=== PATIENT | female | born 1955 | race Caucasian/White ===

== ENCOUNTER 2017-11-13 16:41 | Inpatient (IN) | payer OTHER ==
[~2017-11-13] VITALS: Ht 160 cm; Wt 108.9 kg
[~2017-11-13 16:41] MED LIST: GLIP10TA10; HYDR25TA; INSASP; LOSA25TA12; METF25CR; METO25TA3
[2017-11-13] MEDS ORDERED: ACETAMINOPHEN 325MG TABLET PO STA (18:15)
[2017-11-13] MEDS ORDERED: ASPIRIN 81MG TABLET PO ONE (18:15)
[2017-11-13] MEDS ORDERED: LEVOFLOXACIN 750MG PREMIX 150 ML IV ONE (19:00)
[2017-11-13] MEDS ORDERED: GUAIFENESIN 200MG/10ML SUGAR FREE UDC PO ONE (19:00)
[2017-11-13 19:08] LABS: HEMOGLOBIN. 10.5 g/dL (12.0-16.0); MEAN CORPUSCULAR HEMOGLOBIN 26.8 pg (28.0-32.0); MEAN CORPUSCULAR VOLUME 79.4 fL (81.0-99.0); MEAN PLATELET VOLUME 7.7 fl (7.4-10.4); PLATELET 191 x1000/uL (130-400); RED CELL DISTRIBUTION WIDTH 14.8 % (11.6-14.6)
[2017-11-13 19:14] LABS: INR 1.1; PROTHROMBIN TIME 11.2 sec (9.4-11.6)
[2017-11-13 19:15] LABS: CHLORIDE 96 mEq/L (98-107)
[2017-11-13 19:19] LABS: CARBON DIOXIDE 31 mEq/L (21-32); ETHANOL BLOOD < 10 mg/dL
[2017-11-13 19:28] LABS: TROPONIN I < 0.02 ng/mL (0.00-0.04)
[2017-11-13 20:06] LABS: *AMPHETAMINES SCREEN URINE NEGATIVE (NEGATIVE); *BARBITURATES SCREEN URINE NEGATIVE (NEGATIVE); *BENZODIAZEPINES SCREEN URINE NEGATIVE (NEGATIVE); *COCAINE SCREEN URINE NEGATIVE (NEGATIVE); CANNABINOID URINE SCREEN NEGATIVE (NEGATIVE); METHADONE URINE SCREEN NEGATIVE (NEGATIVE); OPIATES URINE SCREEN PRESUMTIVE POSITIVE (NEGATIVE); PHENCYCLIDINE URINE SCREEN NEGATIVE (NEGATIVE)
[2017-11-13] MEDS ORDERED: ONDANSETRON HCL 4MG/2ML VIAL IV PRN (20:30)
[2017-11-13] MEDS ORDERED: ACETAMINOPHEN 650MG SUPP PR PRN (20:30)
[2017-11-13] MEDS ORDERED: MORPHINE SULFATE 2 MG/ML CPJ (NOT FOR IM USE) IV PRN (20:30)
[2017-11-13] MEDS ORDERED: CLONIDINE 0.1MG TABLET PO PRN (20:30)
[2017-11-13] MEDS ORDERED: ACETAMINOPHEN 650MG/20.3ML UDC GT PRN (20:30)
[2017-11-13] MEDS ORDERED: NA PHOS,M-B/NA PHOS,DI-BA ENEMA 118ML PR PRN (20:30)
[2017-11-13] MEDS ORDERED: MAGNESIUM/ALUMINUM HYDROXIDE/SIMETHICONE 30ML UDC PO PRN (20:30)
[2017-11-13] MEDS ORDERED: DOCUSATE SODIUM 100MG CAPSULE PO PRN (20:30)
[2017-11-13] MEDS ORDERED: DIPHENHYDRAMINE 50MG/ML VIAL IV PRN (20:30)
[2017-11-13] MEDS ORDERED: HYDROCODONE/ACETAMINOPHEN 5/325MG TABLET PO PRN (20:30)
[2017-11-13] MEDS ORDERED: GUAIFENESIN 200MG/10ML SUGAR FREE UDC PO PRN (20:30)
[2017-11-13] MEDS ORDERED: IPRATROPIUM/ALBUTEROL 0.5-3(2.5)MG/3ML NEB INH PRN (20:30)
[2017-11-13 20:42] LABS: PLATELET ESTIMATE NORMAL
[2017-11-13 21:49] LABS: BG BASE EXCESS 6.1 mmol/L (-2.0-2.0); BG CARBOXYHEMOGLOBIN 0.5 % (0.5-1.5); BG DEOXYHEMOGLOBIN 7.3 % (0.0-5.0); BG FRACTION INSPIRED OXYGEN 21; BG HCO3 ACT 29.8 mmol/L (22.0-26.0); BG METHEMOGLOBIN 0.2 % (0.0-1.5); BG OXYGEN SATURATION 92.6 % (92.0-98.5); BG PCO2 39.4 mmHg (35.0-45.0); BG PH 7.496 (7.350-7.450); BG PO2 62.4 mmHg (75.0-100.0); BG SAMPLE SITE RIGHT RADIAL; BG TOTAL HEMOGLOBIN 12.3 g/dL (12.0-18.0); BG VENT MODE ROOM AIR
[2017-11-13 23:30] VITALS: BP 157/67
[2017-11-13] MEDS ORDERED: ZITHROMAX XX SCH (23:45)
[2017-11-13] MEDS ORDERED: ROCEPHINE XX SCH (23:45)
[2017-11-14] VITALS: BP 157/67
[2017-11-14] MEDS ORDERED: IPRATROPIUM/ALBUTEROL 0.5-3(2.5)MG/3ML NEB INH SCH
[2017-11-14] MEDS ORDERED: CEFTRIAXONE 1 G PREMIX 50 ML IV SCH (01:00)
[2017-11-14] MEDS ORDERED: LEVVL SQ (01:49)
[2017-11-14] MEDS ORDERED: ASPI-1159 PO (01:49)
[2017-11-14] MEDS ORDERED: AZITHROMYCIN 500 MG in DEXT 5% WATER 250 ML IV SCH (02:00)
[2017-11-14] MEDS ORDERED: ACETAMINOPHEN 650MG/20.3ML UDC PO PRN (02:30)
[2017-11-14] MEDS ORDERED: SODIUM CHLORIDE 0.9% INJ 3ML FLUSH IVF SCH (06:00)
[2017-11-14 08:00] VITALS: BP 156/71
[2017-11-14] MEDS ORDERED: ENOXAPARIN 30MG/0.3ML SYR SUBCUT SCH (09:00)
[2017-11-14 10:11] LABS: BASOPHILS % 0.2 % (0.0-2.0); EOSINOPHILS % 1.4 % (0.0-5.0); HEMATOCRIT. 30.9 % (36.0-48.0); HEMOGLOBIN. 10.3 g/dL (12.0-16.0); LYMPHOCYTES % 10.6 % (20.0-50.0); MEAN CORPUSCULAR HEMOGLOBIN 26.7 pg (28.0-32.0); MEAN PLATELET VOLUME 7.6 fl (7.4-10.4); MONOCYTES % 11.6 % (2.0-8.0); NEUTROPHILS % 76.2 % (40.0-76.0); PLATELET 186 x1000/uL (130-400); RED BLOOD CELL COUNT 3.87 mill/uL (4.2-5.4); RED CELL DISTRIBUTION WIDTH 14.3 % (11.6-14.6)
[2017-11-14 10:24] LABS: CARBON DIOXIDE 31 mEq/L (21-32); CHLORIDE 96 mEq/L (98-107)
[2017-11-14 12:00] VITALS: BP 149/63
[2017-11-14 13:37] VITALS: BP 149/63
[2017-11-15] MEDS ORDERED: AZITHROMYCIN 500 MG in DEXT 5% WATER 250 ML IV SCH (06:00)
[2017-11-15] MEDS ORDERED: CEFTRIAXONE 1 G PREMIX 50 ML IV SCH (09:00)
== END 2017-11-14 15:05 | disposition short-term general hospital (02) | DRG 720 ==
LOC: ER 16:41 → 6EST 21:44 → EDBEDREQ 21:46 → EDBEDREQTM 21:46 → EDBEDREQSVC 21:46 → ENRESERV 22:24
PROVIDERS: ADMIT Family Medicine; ATTEND Family Medicine
DX: A41.9 Sepsis, unspecified organism (principal); J96.00 Acute respiratory failure, unspecified whether with hypoxia or hypercapnia; E87.3 Alkalosis; E46 Unspecified protein-calorie malnutrition; E11.649 Type 2 diabetes mellitus with hypoglycemia without coma; E11.65 Type 2 diabetes mellitus with hyperglycemia; E03.9 Hypothyroidism, unspecified; D50.9 Iron deficiency anemia, unspecified; E66.2 Morbid (severe) obesity with alveolar hypoventilation; E86.0 Dehydration; E87.1 Hypo-osmolality and hyponatremia; I10 Essential (primary) hypertension; Z68.41 Body mass index [BMI] 40.0-44.9, adult
CPT/HCPCS: 36415; 36600; 70450; 71045; 80053; 80305; 82375; 82805; 82962; 83036; 83605; 83690; 83880; 84484; 85025; 85379; 85610; 87040; 87086; 87804; 93005; 93970; 96374; 99285; G0482; J0456; J0696; J1650; J1956; J7060

== ENCOUNTER 2020-12-07 12:52 | Emergency (ER) | payer MEDICARE, OTHER ==
[~2020-12-07] VITALS: Ht 160 cm; Wt 61.0 kg
[~2020-12-07 12:52] MED LIST changes: +ASPI-1497 PO; +LEVVL SQ; -LOSA25TA12; +LOSA25TA26
[2020-12-07 13:30] VITALS: BP 146/53
[2020-12-07] MEDS ORDERED: TETANUS AND DIPHTHERIA TOX/PF 0.5ML SYR (ADULT) IM ONE (17:30)
== END 2020-12-07 17:37 | disposition home or self-care (01) ==
LOC: ER 12:52
DX: S00.03XA Contusion of scalp, initial encounter (principal); W18.39XA Other fall on same level, initial encounter; Y93.89 Activity, other specified; Y92.89 Other specified places as the place of occurrence of the external cause; Y99.8 Other external cause status; E11.9 Type 2 diabetes mellitus without complications; I10 Essential (primary) hypertension; Z79.4 Long term (current) use of insulin; Z79.899 Other long term (current) drug therapy
CPT/HCPCS: 90471; 90714; 99284

== ENCOUNTER 2021-05-30 11:19 | Inpatient (IN) | payer MEDICARE, OTHER, MEDICAID ==
[~2021-05-30] VITALS: Ht 152.4 cm; Wt 61.2 kg
[2021-05-30 13:14] LABS: CHLORIDE 102 mEq/L (98-107)
[2021-05-30 13:16] LABS: BASOPHILS % 0.2 % (0.0-2.0); EOSINOPHILS % 3.5 % (0.0-5.0); HEMATOCRIT. 29.4 % (36.0-48.0); HEMOGLOBIN. 9.9 g/dL (12.0-16.0); LYMPHOCYTES % 16.7 % (20.0-50.0); MEAN CORPUSCULAR HEMOGLOBIN 27.9 pg (28.0-32.0); MEAN CORPUSCULAR VOLUME 82.4 fL (81.0-99.0); MEAN PLATELET VOLUME 7.2 fl (7.4-10.4); MONOCYTES % 6.9 % (2.0-8.0); NEUTROPHILS % 72.7 % (40.0-76.0); PLATELET 240 x1000/uL (130-400); RED BLOOD CELL COUNT 3.56 mill/uL (4.2-5.4); RED CELL DISTRIBUTION WIDTH 18.8 % (11.6-14.6)
[2021-05-30 14:49] LABS: PROTHROMBIN TIME 10.3 sec (9.6-11.0)
[2021-05-30] MEDS ORDERED: ENOXAPARIN 80MG/0.8ML SYR SUBCUT ONE (15:30)
[2021-05-30 21:00] VITALS: BP 151/57
[2021-05-30] MEDS ORDERED: ONDANSETRON HCL 4MG/2ML INJ IV PRN (21:45)
[2021-05-30] MEDS ORDERED: MORPHINE SULFATE 2 MG/ML CPJ (NOT FOR IM USE) IV PRN (21:45)
[2021-05-30] MEDS ORDERED: DEXTROSE 50% WATER 50ML SYRINGE IV PRN (21:45)
[2021-05-30] MEDS ORDERED: ACETAMINOPHEN 325MG TABLET PO PRN (21:45)
[2021-05-30] MEDS ORDERED: CEFAZOLIN 1000MG PREMIX 50 ML IV SCH (22:00)
[2021-05-30] MEDS ORDERED: PIPERACILLIN/TAZOBACTAM 3.375 G/VIAL IV SCH (22:00)
[2021-05-30] MEDS ORDERED: VANCOMYCIN 1500MG in DEXTROSE 5% WATER 250ML IV NR (23:30)
[2021-05-30] MEDS: ZOLPIDEM TARTRATE 5MG TABLET PO PRN (23:58)
[2021-05-30] MEDS: PIPERACILLIN/TAZOBACTAM 3.375G in DEXT 5% WATER 50ML IV SCH (23:58)
[2021-05-30 23:59] LABS: BASOPHILS % 0.4 % (0.0-2.0); EOSINOPHILS % 3.7 % (0.0-5.0); HEMATOCRIT. 28.1 % (36.0-48.0); HEMOGLOBIN. 9.3 g/dL (12.0-16.0); MEAN CORPUSCULAR HEMOGLOBIN 27.7 pg (28.0-32.0); MEAN CORPUSCULAR VOLUME 83.9 fL (81.0-99.0); MEAN PLATELET VOLUME 7.4 fl (7.4-10.4); MONOCYTES % 7.6 % (2.0-8.0); NEUTROPHILS % 62.3 % (40.0-76.0); PLATELET 209 x1000/uL (130-400); RED BLOOD CELL COUNT 3.35 mill/uL (4.2-5.4); RED CELL DISTRIBUTION WIDTH 18.9 % (11.6-14.6)
[2021-05-31] VITALS (7 sets, daily range): BP systolic 106–154; BP diastolic 45–67
[2021-05-31] MEDS ORDERED: CLONIDINE 0.1MG TABLET PO SCH
[2021-05-31 00:04] LABS: CHLORIDE 102 mEq/L (98-107)
[2021-05-31] MEDS ORDERED: CLONIDINE 0.1MG TABLET PO PRN (00:15)
[2021-05-31] MEDS ORDERED: VANCOMYCIN 1250MG in DEXTROSE 5% WATER 250ML IV NR (01:00)
[2021-05-31] MEDS: PIPERACILLIN/TAZOBACTAM 3.375G in DEXT 5% WATER 50ML IV SCH ×3 (04:34→16:59)
[2021-05-31] MEDS: CEFAZOLIN 1000MG PREMIX 50 ML IV SCH ×2 (05:19→13:39)
[2021-05-31] MEDS: BLOOD SUGAR DIAGNOSTIC STRIP TEST SCH ×4 (05:56→20:45)
[2021-05-31] MEDS: INSULIN LISPRO 100 UNITS/ML SUBCUT SCH ×4 (06:01→21:00)
[2021-05-31 06:25] LABS: BASOPHILS % 0.3 % (0.0-2.0); EOSINOPHILS % 3.4 % (0.0-5.0); HEMATOCRIT. 30.5 % (36.0-48.0); HEMOGLOBIN. 10.1 g/dL (12.0-16.0); LYMPHOCYTES % 24.9 % (20.0-50.0); MEAN CORPUSCULAR HEMOGLOBIN 27.8 pg (28.0-32.0); MEAN CORPUSCULAR VOLUME 84.1 fL (81.0-99.0); MEAN PLATELET VOLUME 7.3 fl (7.4-10.4); MONOCYTES % 7.2 % (2.0-8.0); NEUTROPHILS % 64.2 % (40.0-76.0); PLATELET 202 x1000/uL (130-400); RED BLOOD CELL COUNT 3.62 mill/uL (4.2-5.4); RED CELL DISTRIBUTION WIDTH 18.7 % (11.6-14.6)
[2021-05-31 06:41] LABS: CHLORIDE 102 mEq/L (98-107)
[2021-05-31] MEDS ORDERED: IODIXANOL 320MG/ML 100 ML BOTTLE IV ONE (07:49)
[2021-05-31] MEDS ORDERED: LIDOCAINE HCL 1% 20ML VIAL (Pyxis) INJ ONE (07:50)
[2021-05-31] MEDS ORDERED: HEPARIN SODIUM 1,000 UNIT/1ML VIAL IV ONE (07:54)
[2021-05-31] MEDS ORDERED: MIDAZOLAM HCL 2 MG/2 ML VIAL ONE (08:04)
[2021-05-31] MEDS ORDERED: FENTANYL CITRATE/PF 50MCG/ML 2ML VIAL ONE (08:05)
[2021-05-31] MEDS ORDERED: IOHEXOL-300 100 ML BOTTLE ONE (08:22)
[2021-05-31] MEDS: CLOPIDOGREL 75MG TABLET PO SCH (10:54)
[2021-05-31] MEDS: ATORVASTATIN CALCIUM 40MG TABLET PO SCH (10:54)
[2021-05-31] MEDS: ASPIRIN 81MG TABLET PO SCH (10:54)
[2021-05-31] MEDS: AMLODIPINE 10MG TABLET PO SCH (10:56)
[2021-05-31] MEDS ORDERED: VANCOMYCIN 500 MG PREMIX 100 ML IV SCH (13:00)
[2021-05-31] MEDS ORDERED: INSULIN GLARGINE UD 100 UNITS/ML SYR SUBCUT SCH (13:00)
[2021-05-31] MEDS: ENOXAPARIN 40MG/0.4ML SYR SUBCUT SCH (16:59)
[2021-05-31] MEDS: ZOLPIDEM TARTRATE 5MG TABLET PO PRN (20:45)
[2021-05-31] MEDS: INSULIN GLARGINE UD 100 UNITS/ML SYR SUBCUT SCH (21:21)
[2021-06-01 04:00] VITALS: BP 178/63
[2021-06-01] MEDS: BLOOD SUGAR DIAGNOSTIC STRIP TEST SCH ×2 (06:22→12:10)
[2021-06-01] MEDS: INSULIN LISPRO 100 UNITS/ML SUBCUT SCH ×2 (06:22→13:55)
[2021-06-01 06:35] LABS: CHLORIDE 105 mEq/L (98-107)
[2021-06-01 08:07] VITALS: BP 145/57
[2021-06-01] MEDS: CLOPIDOGREL 75MG TABLET PO SCH (09:35)
[2021-06-01] MEDS: ASPIRIN 81MG TABLET PO SCH (09:35)
[2021-06-01] MEDS: AMLODIPINE 10MG TABLET PO SCH (09:36)
[2021-06-01] MEDS: ATORVASTATIN CALCIUM 40MG TABLET PO SCH (09:39)
[2021-06-01] MEDS: INSULIN GLARGINE UD 100 UNITS/ML SYR SUBCUT SCH (10:04)
[2021-06-01 12:10] VITALS: BP 142/48
[2021-06-01 14:00] LABS: CLARITY URINE CLEAR (CLEAR); COLOR URINE YELLOW (YELLOW); KETONES URINE NEGATIVE (NEGATIVE); LEUKOCYTE ESTERASE URINE NEGATIVE (NEGATIVE); NITRITE URINE NEGATIVE (NEGATIVE); OCCULT BLOOD URINE NEGATIVE (NEGATIVE); PROTEIN URINE NEGATIVE (NEGATIVE); SPECIFIC GRAVITY URINE 1.036 (1.005-1.030)
[2021-06-01 16:02] VITALS: BP 143/56
[2021-06-01] MEDS: ENOXAPARIN 40MG/0.4ML SYR SUBCUT SCH (16:12)
[2021-06-01 16:52] VITALS: BP 142/48
== END 2021-06-01 17:45 | disposition home health service (06) | DRG 254 ==
LOC: ER 11:19 → 8WST 15:17 → ENRESERV 18:04
PROVIDERS: ADMIT Internal Medicine; ATTEND Internal Medicine
PROC: 047L341 Dilation of Left Femoral Artery with Drug-eluting Intraluminal Device, using Drug-Coated Balloon, Percutaneous Approach (ICD-10-PCS; principal; 2021-05-31)
PROC: 047S3ZZ Dilation of Left Posterior Tibial Artery, Percutaneous Approach (ICD-10-PCS; 2021-05-31)
PROC: 047N3ZZ Dilation of Left Popliteal Artery, Percutaneous Approach (ICD-10-PCS; 2021-05-31)
PROC: B41G1ZZ Fluoroscopy of Left Lower Extremity Arteries using Low Osmolar Contrast (ICD-10-PCS; 2021-05-31)
PROC: 047N341 Dilation of Left Popliteal Artery with Drug-eluting Intraluminal Device, using Drug-Coated Balloon, Percutaneous Approach (ICD-10-PCS; 2021-05-31)
DX: E11.51 Type 2 diabetes mellitus with diabetic peripheral angiopathy without gangrene (principal); M19.90 Unspecified osteoarthritis, unspecified site; E11.621 Type 2 diabetes mellitus with foot ulcer; M32.9 Systemic lupus erythematosus, unspecified; Z20.822 Contact with and (suspected) exposure to COVID-19; D64.9 Anemia, unspecified; D72.819 Decreased white blood cell count, unspecified; I10 Essential (primary) hypertension; I99.8 Other disorder of circulatory system; K21.9 Gastro-esophageal reflux disease without esophagitis; L97.529 Non-pressure chronic ulcer of other part of left foot with unspecified severity; Z87.11 Personal history of peptic ulcer disease; Z79.4 Long term (current) use of insulin; Z88.8 Allergy status to other drugs, medicaments and biological substances; Z79.82 Long term (current) use of aspirin
CPT/HCPCS: 36415; 37224; 37228; 75710; 80048; 80053; 80202; 81003; 82962; 83036; 85025; 85347; 87426; 93005; 99291; C1725; C1760; C1769; C1887; C1893; C1894; J0690; J1644; J1650; J1815; J2250; J2270; J2543; J3010; J3370; J3490; J7040; J7060; Q9967